=== PATIENT | female | born 1950 | race African-American/Black ===

== ENCOUNTER 2021-05-10 07:40 | Outpatient (CLI) | payer MEDICARE | END 2021-05-10 07:41 | disposition home or self-care (01) | LOC: CSHULT 07:40 | PROVIDERS: ATTEND Family Medicine | DX: R74.8 Abnormal levels of other serum enzymes (principal); K76.0 Fatty (change of) liver, not elsewhere classified | CPT/HCPCS: 76705 ==

== ENCOUNTER 2024-04-24 14:24 | Emergency (ER) | payer MEDICARE ==
[2024-04-24] MEDS ORDERED: levETIRAcetam 500 MG (5 mL) VIAL ONE (14:36)
[2024-04-24 15:51] LABS: Hematocrit 33.4 % (34.9-44.5); Hemoglobin 11.2 g/dL (12.0-15.5); Mean Corpuscular HGB CONC 33.5 g/dL (32.0-36.0); Mean Corpuscular Volume 86.5 fL (81.6-98.3); Mean Platelet Volume 10.7 fL (7.4-10.4); Platelet Count 209 10x3/uL (150-450); Red Blood Cell (RBC) Count 3.86 10x6/uL (3.90-5.03); White Blood Cell (WBC) Count 6.77 10x3/uL (3.5-10.5)
[2024-04-24 15:53] LABS: ALT (SGPT) 14 U/L (Less than 34); AST (SGOT) 35 U/L (11-34); Albumin 3.8 g/dL (3.1-4.5); Alkaline Phosphatase 135 U/L (40-110); Anion Gap 14 mmol/L (10-20); BUN (Urea Nitrogen) 18 mg/dL (9.8-20.1); Bilirubin, Total 0.3 mg/dL (0.3-1.2); Calc. Creatinine Clearance 0 mL/min (70-130); Calcium 9.3 mg/dL (7.8-10.44); Carbon Dioxide 24 mmol/L (23-31); Chloride 109 mmol/L (98-107); Estimated GFR 35; Glucose 117 mg/dL (83-110); Potassium 3.6 mmol/L (3.5-5.1); Protein, Total 7.8 g/dL (5.8-8.1); Sodium 143 mmol/L (136-145)
[2024-04-24 15:59] LABS: Troponin I Less than 0.010 ng/mL (< 0.028)
[2024-04-24 16:26] LABS: Eosinophils 18 % (0-10); Lymphocytes 31 % (21-51); MDiff Complete? YES; Monocytes 12 % (0-10); Neutrophil 39 % (42-75); Ovalocytes SLIGHT = 2-5 cells (100X) (0-1/hpf); Platelet Adequacy Comment Appears Adequate
== END 2024-04-24 16:50 | disposition home or self-care (01) ==
LOC: CSHERS 14:24
DX: R56.9 Unspecified convulsions (principal); I10 Essential (primary) hypertension
CPT/HCPCS: 70450; 71045; 80053; 80177; 84484; 85025; 87428; 93005; J1953; 36415